=== PATIENT | female | born 1980 | race Hispanic/Latino ===

== ENCOUNTER 2016-11-11 06:48 | Inpatient (IN) | payer MEDICAID ==
[~2016-11-11] VITALS: Ht 144.8 cm; Wt 87.1 kg
[~2016-11-11 06:48] MED LIST: ASCO500T8 PO; Benzocaine TP; Docusate Sodium PO; FERR-74 PO; Hydrocodone/Acetaminophen PO; Ibuprofen PO; Lanolin TP; PREN1TAB73 PO; TUCPAD TP
[2016-11-11] MEDS ORDERED: Lactated Ringer's 1,000 ML IV PRN (07:19)
[2016-11-11] MEDS ORDERED: Carboprost 250 mCg/mL Inj IM PRN ×2 (07:20→09:45)
[2016-11-11] MEDS ORDERED: Hemorrhage Kit, Post Partum XX ONE ×2 (07:20→09:45)
[2016-11-11] MEDS ORDERED: Sodium Chloride LOK Flush 10 mL Syringe IVFLUSH PRN (07:20)
[2016-11-11] MEDS ORDERED: fentaNYL-PF 50 mCg/mL 2 mL Inj IVPUSH PRN (07:20)
[2016-11-11] MEDS ORDERED: Methylergonovine 0.2 mg/mL Inj IM PRN ×2 (07:20→09:45)
[2016-11-11] MEDS ORDERED: Oxytocin 10 Unit/mL Inj IM PRN ×2 (07:20→09:45)
[2016-11-11] MEDS ORDERED: Ampicillin Inj 2,000 MG in 0.9% Sodium Chloride 100 ML IV ONE (07:20)
[2016-11-11] MEDS ORDERED: Oxytocin 30 Units/500 mL LR 30 UNITS in IV Premix 1 EACH IV PRN ×2 (07:20→09:45)
[2016-11-11] MEDS ORDERED: Ondansetron 2 mg/mL 2 mL Inj IVPUSH PRN (07:20)
[2016-11-11 08:00] LABS: Mean Corpuscular Hemoglobin 24.6 pg (27.0-35.0); Mean Corpuscular Volume 76.4 fL (81-100)
[2016-11-11] MEDS ORDERED: PREN1TAB87 PO (08:08)
--- NOTE | 2016-11-11 08:37 | PCM.HPOB ---
Subjective Date of Service: Nov 11, 2016 Referring Provider: Admitting Physician: Sommer Moreno MD Primary Care Physician: Sommer Moreno MD Attending Physician: Sommer Moreno MD Chief Complaint Active labor at term with painful contractions History of Present History of Present Illness Patient is a very pleasant 35 year old female who has had regular PN care, and woke overnight with contractions since 2 am. she came to the Center by 7 am and was 4 cm, stretchy to 6 cm , with a bulging bag of forewaters. She is GBS positive, and Ampicillin 2grams IV is already up and running. FHR baseline was a little flat initially, and RBS was 95. Mom was given IV hydration, and FHR is reactive currently, with baseline in the 130 to 140's with good BTBV and accelerations. No decels noted. She is karena every 4 to 5 minutes, and is breathing well thru these. She is wanting to go naturally, and recent u/s on Oct 29, 2016 showed growth at the 48th% ( EFW 3069 grams), SOFI 9.6 cm and normal development for gestational age. She does have diet controlled GDM, and weight gain in the has been 16lbs. BP has been normal, and Mom has been having once weekly NST for the last 5 weeks that have been reassuring. has otherwise been uncomplicated and is anticipated. OB History: (4), Para (3), (0), Living Obstetrical Complications: Gestational Diabetes Past Medical History Obstetrical History: 1. Baby #1 was born 03/31/2006 at 39 weeks, following 5 hours of labor. She had oligohydramnios at term. She went onto of a healthy baby boy, weighing 6lbs 14 ozs. His name is Teddy. 2. Baby #2 was born 01/30[birth year]2009 at 40+5 weeks, following 7 hours of labor. She had failed induction at 39 weeks, for moderate oligohydramnios. She went onto of a healthy baby boy weighing 8 lb 9 ounces. There was a moderate shoulder dystocia. Baby's name is Lucian. 3. Baby #3 was born 09/13/2014 at 38+6 weeks, with spontaneous labor of 9 hours. She had an epidural with this baby. She went onto of a healthy baby boy weighing 7 lbs 11 ozs, and his name is Julian. Fontanez. This is her current . 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 No other gyne issues of note. Medical History: She had her GB removed in 2006, and had + PPD in 2000 treated with a full 9 months of INH and follow up chest xray was normal. Surgical History: She has had cryotherapy to her cervix, and gallbladder removal. Social History: She has grade 9 education and does not smoke, drink or use illegal or controlled substances. Hx Tobacco Use: No Smoking Status: Never Smoker Past Family History Living Arrangement: with Family Genetic Screening/Counseling Genetic Screening/Counseling: Negative Baby father-had child w defect: No Review of Systems Constitutional: Y: Chills, Fever Eyes: Resports: Blurred Vision, Denies: Pain, Redness ENT: Denies: Dental Problems, Ear Discharge, Ear Pain, Nasal Congestion, Throat Pain, Ulcers/Sores in Mouth Cardiovascular: Denies: Chest Pain, Edema Respiratory: Denies: Cough Gastrointestinal: Reports: Nausea, Denies: Abdominal Pain, Constipation, Diarrhea, Heartburn, Vomiting Genitourinary: Denies: Dysuria, Hematuria Musculoskeletal: Denies: Redness, Swelling Skin/Breasts: Denies: Bruising, Discharge Skin: Denies: Jaundice Neurological: Denies: Change in Speech, Confusion, Dizziness Psychologic: Denies: Agitation, Anxious, Apprehensive, Depression Endocrine: Reports: Blood Glucose Review Hematologic: Denies: Adenopathy Allergy Coded Allergies: No Known Allergies (Verified , 03/30/06) Exam Vital Signs 123/63 , 132/65. HR 65 to 73, temp 36.0 degrees Constitutional: Well-developed, Well-nourished, Obese HEENT: PERRLA, EOMI Lungs: Clear to Auscultation, Clear to Percussion, Normal Air Movement Heart: Regular Rate/Rhythm, Normal S1, Normal S2 Abdomen: Gravid, Soft, No tenderness Lymphatic: Normal: Neck Palpation of Nodes Extremities: Pulses Palpable x4, Warm, No Edema Neurological/Psychiatric: Alert, Oriented X3, Cooperative, Mild Distress Neuro: Grossly Neurologically Intact Labs/Diagnostics Bedside Blood Glucose: 95 Labs Patient is O positive, with no abnormal antibodies. 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 She is not on acyclovir propylaxis. Maternal Blood Type: O Hx Rho(D) Immune Globulin: No Antibody Screen: negative Group B Strep Results: Positive Previous Infant with GBS: No Rubella: Immune Lab History: Positive for: Hx Herpes, Negative for: Hx Chicken Pox, Hx Gonorrhea, Hx HIV, Hx Syphilis OB Intrapartum Assessment/Plan Assessment Patient is a very pleasant 35 year old in active labor at 39+1 week with GBS +. Ampicillin has been infused, FHR is reactive with baseline 130's to 140' s. she has well controlled gestational diabetes mellitus, by diet only. is anticipated, with EFW 7 to 7 1/2 lb range. Problems: (1) with 39 completed weeks gestation Status: Acute ICD Code: Z3A.39 (2) Diet controlled gestational diabetes mellitus (GDM), antepartum Status: Acute ICD Code: O24.410 (3) Positive GBS test Status: Acute ICD Code: B95.1 Sommer Moreno MD Nov 11, 2016 08:37
[2016-11-11] MEDS ORDERED: Benzocaine (Dermoplast) 20% 60 Gm Spray TOPICAL PRN (09:45)
[2016-11-11] MEDS ORDERED: HYDROcodone-APAP 5-325 mg Tablet PO PRN (09:45)
[2016-11-11] MEDS: Lactated Ringer's 1,000 ML IV SCH ×2 (09:45→17:45)
[2016-11-11] MEDS ORDERED: LANOlin HPA 7 Gm Ointment TOPICAL PRN (09:45)
[2016-11-11] MEDS ORDERED: Witch Hazel-Glycerin Pads TOPICAL PRN (09:45)
--- NOTE | 2016-11-11 10:04 | PCM.OBVAG ---
Vaginal Delivery Date of Service Nov 11, 2016 Pre Operative Diagnosis Pre Operative Diagnosis 1. at 39+1 weeks with spontaneous labor 2. GBS positive testing 3. Diet controlled GDM 4. of LBM Post Operative Diagnosis Post Operative Diagnosis 1. at 39+1 weeks with spontaneous labor 2. GBS positive testing 3. Diet controlled GDM 4. of LBM Procedure Obstetical Procedure: Normal Spontaneous Vaginal Delivery Editorial Clerk/Ent Physician Provider and Ent Physician: Dr. Sommer Moreno Indication for Procedure Induction: Active labor, AROM, Progressed normally through labor Findings Obstetrical Findings: (Male), Cord (3 Vessel), Presentation (ADRIAN), 1 minute (9), 5 minutes (9), Placenta Analgesia/Medications Procedural Analgesia: Natural labor with no analgesia needed. Perineum was intact. Procedure Details Procedure Details Patient is a very pleasant 35 year old at 39+1 weeks , who has had regular PN care and has EDC of 11/17/2016. She woke earlier today around 02:30 hours with painful, regular contractions, and came to the Center before 07 :00 hours and was already 4 cm, with vertex presentation, and karena every 4 to 5 minutes. She was admitted, and received Ampicillin 2grams IV within the hour of her arrival, and made good progress thru active labor. FHR baseline was in the 130 to 140's with good BTBV, and good accelerations.AROM was done at 7 cm for a small amount of clear amniotic fluid, with normal bloody show. Mother made rapid progress after this, and as active labor progressed, some variable decels to 90 to 100 were noted.There was good recovery to baseline after each contraction, and Mother was feeling a strong urge to push. She was complete at 09:28 hrs, and with strong pushing over one contraction, went onto of a LBM infant. Baby was born at 09:30 hrs and was placed onto the maternal abdomen. There was a loose loop of nuchal cord that he delivered thru. Delayed cord clamping was done. Baby was crying right away, and Apgars were 9 at one minute, and 9 at 5 minutes. Placenta delivered intact with a 3 vessel cord at 09:36 hours. Mother's perineum was intact. EBL at time of delivery was < 200mls. Mom is already and routine care is anticipated for both of them. Some blood sugars will be checked on the baby because of Mom's diet controlled GDM. Her first stage of labor was about 7 hours, second stage was 2 minutes, and third stage was 6 minutes. Specimen Placenta was for routine disposal. Blood Loss & Administration Estimated Blood Loss: 200 Blood Admin during procedure: No Post Procedure Plan Post delivery Condition: Mom stable Sommer Moreno MD Nov 11, 2016 09:59
[2016-11-11] MEDS ORDERED: Ampicillin Inj 1,000 MG in 0.9% Sodium Chloride 50 ML IV SCH (12:30)
[2016-11-12 06:26] LABS: Mean Corpuscular Hemoglobin 24.6 pg (27.0-35.0); Mean Corpuscular Volume 77.6 fL (81-100)
--- NOTE | 2016-11-12 08:11 | PCM.DC.OB ---
Obstetrical Discharge Summary Date of Service Nov 12, 2016 Date of hospital admission Nov 11, 2016 at 07:16 Date of Discharge: Nov 12, 2016 Providers Admitting Physician: Agnes Moreno MD Primary Care Physician: Agnes Moreno MD Attending Physician: Agnes Moreno MD Diagnosis at Time of Discharge 1. at 39+1 week with spontaneous labor 2. Positive GBS testing with one dose of ampicillin prior to delivery 3. Diet-controlled gestational diabetes 4. Spontaneous vaginal delivery of a live born male Problems: (1) with 39 completed weeks gestation Status: Resolved ICD Code: Z3A.39 (2) Diet controlled gestational diabetes mellitus (GDM), antepartum Status: Acute ICD Code: O24.410 (3) Positive GBS test Status: Resolved ICD Code: B95.1 (4) (normal spontaneous vaginal delivery) Onset Date: 09/13/2014 Status: Acute ICD Code: O80 Brief History and Physical: Patient is a very pleasant 35 year old female who has had regular PN care, and woke overnight with contractions since 2 am. she came to the Center by 7 am and was 4 cm, stretchy to 6 cm , with a bulging bag of forewaters. She is GBS positive, and Ampicillin 2grams IV is already up and running. FHR baseline was a little flat initially, and RBS was 95. Mom was given IV hydration, and FHR is reactive currently, with baseline in the 130 to 140's with good BTBV and accelerations. No decels noted. She is karena every 4 to 5 minutes, and is breathing well thru these. She is wanting to go naturally, and recent u/s on Oct 29, 2016 showed growth at the 48th% ( EFW 3069 grams), SOFI 9.6 cm and normal development for gestational age. She does have diet controlled GDM, and weight gain in the has been 16lbs. BP has been normal, and Mom has been having once weekly NST for the last 5 weeks that have been reassuring. has otherwise been uncomplicated and is anticipated. Hospital Course: Patient is a very pleasant 35-year-old G4 now P4 who came to the center yesterday in active labor and made good progress through same. Ampicillin 2 g IV was given prior to delivery. AROM had been done fluid and normal bloody show at 7 cm. heart rate was reactive throughout labor and delivery with baseline in the 130s to 140s with good [id number] variability and good accelerations. Mother went onto spontaneous vaginal delivery of a live born male with weight 6 lbs. 13 oz., and Apgars of 9 at 1 minute and 9 at 5 minutes. Her perineum was intact and placenta delivered intact as well, with a three-vessel cord. Estimated blood loss at time of delivery was 200 mils. In the mother has been doing well and is breast-feeding with her baby. Vital signs have remained stable for both of them. She is managing her pain with just ibuprofen. She feels ready to go home later this afternoon. On examination she is a pleasant female no acute distress blood pressures. From 109/42-124/48. Heart rate 63-75, respiratory rate 16, temperature 36.6-36.8. Chest is clear throughout with normal respiratory effort ,heart sounds normal sinus rhythm with no murmurs ,breasts are soft and colostrum is easily expressible. Fundus is firm and 1 fingerbreadth below the umbilicus. Her perineum is not swollen and she has moderate rubra lochia. She has no ankle edema. ([Benzocaine]) 1 SPRAY/GM SPRAY 1 SPRAY TP PRN PRN PRN for perineal pain Prescribed by: AGNES MORENO MD ([Docusate Sodium]) 100 MG CAPSULE 100 MG PO DAILY Prescribed by: AGNES MORENO MD ([Hydrocodone/Acetaminophen]) 1 TAB TABLET 1-2 TAB PO Q4H PRN PRN For Pain Prescribed by: AGNES MORENO MD ([Ibuprofen]) 800 MG TABLET 800 MG PO Q6H PRN PRN For Pain Prescribed by: AGNES MORENO MD ([Lanolin]) 14 APPLIC/7 GM OINT 1 APPLIC TP PRN PRN PRN apply to nipples Prescribed by: AGNES MORENO MD Ascorbic Acid (Vitamin C) 500 Mg Tablet 500 MG PO BIDWM Prescribed by: AGNES MORENO MD Ferrous Sulfate (Feosol) 325 Mg Tablet 325 MG PO BIDWM Prescribed by: AGNES MORENO MD Vit W-Ca,Fe,FA(<1 mg) ( Vitamins) 1 Each Tablet 1 EACH PO DAILY (Reported) Last Taken: Unknown Dose on 11/10/16 0800 Vit/Fe Fumarate/Fa- Expunged Drug, Do (-Expunged Drug, Do Not Renew!) 1 Tab Tablet 1 TAB PO DAILY (Reported) Witch Freida/Glycerin (A.e.r Pads) 12 Towelette/Pkg Towelette 1 TOWELETTE TP PRN PRN PRN for perineal pain Prescribed by: AGNES MORENO MD Discharge Medications: 1. Ibuprofen 800 mg by mouth 3 times a day when necessary with meals 2. vitamins 1 tablet by mouth daily while breast-feeding 3. Ferrous sulfate 325 mg by mouth daily 3 months Disposition Patient will be discharged home later that today with her baby for follow-up in the office. Discharge Diet: No restrictions (it would be advisable to stick with a diabetic type of diet long-term, as gestational diabetes does predispose to type II diabetes later in life.), Diabetic Discharge Activity-General: No restrictions, Pelvic Rest for 6 weeks, Try not to overdue, Be up and about, Balance rest and activity, Activity as pain allows , Activity as energy allows Patient instructions Please breast-feed every 2-3 hours for 10-15 minutes on each side and make sure that the baby has a good latch. I would anticipate that she milk will be coming in over the next day or so and then the baby will be more satisfied. Please call the office with any questions or concerns and I would like to see the baby by Wednesday. Agnes Moreno MD Nov 12, 2016 08:11
--- NOTE | 2016-11-12 08:14 | PCM.DIOB ---
Obstetrical Disch Instruction Date of Service: Nov 12, 2016 Dates of Hospitalization Date of Hospital Admission Nov 11, 2016 at 07:16 Providers Admitting Physician: Sommer Moreno MD Primary Care Physician: Sommer Moreno MD Attending Physician: Sommer Moreno MD Discharge Diagnosis Discharge Diagnosis 1. at 39 weeks +1 day with spontaneous labor 2. GBS testing positive with one dose of ampicillin prior to delivery 3. Diet-controlled gestational diabetes 4. Spontaneous vaginal delivery of a live born male infant Post Operative diagnosis Same as the above Problems: (1) with 39 completed weeks gestation Status: Resolved ICD Code: Z3A.39 (2) Diet controlled gestational diabetes mellitus (GDM), antepartum Status: Acute ICD Code: O24.410 (3) Positive GBS test Status: Resolved ICD Code: B95.1 (4) (normal spontaneous vaginal delivery) Onset Date: 09/13/2014 Status: Acute ICD Code: O80 Diet Discharge Diet: No restrictions (it would be advisable to stick with a diabetic type of diet long-term, as gestational diabetes does predispose to type II diabetes later in life.), Diabetic Activity Discharge Activity-General: No restrictions, Pelvic Rest for 6 weeks, Try not to overdue, Be up and about, Balance rest and activity, Activity as pain allows , Activity as energy allows Dressing and Incisional Care Hygiene: May shower, Perineal care, Sitz bath, Dermoplast spray, Witch Freida pads, Ice Additional Instructions Discharge Instructions Please breast-feed every 2-3 hours for 10-15 minutes on each side and make sure that the baby has a good latch. I would anticipate that she milk will be coming in over the next day or so and then the baby will be more satisfied. Please call the office with any questions or concerns and I would like to see the baby by Wednesday. Follow Up Plan Follow-up Provider (F9): Sommer Moreno MD Follow-up appointment: Weeks (6) Call your provider for: Fever or Chills, Shortness of breath, Heavy vaginal bleeding, Epigastric pain, Excessive constipation, Vaginal discomfort, Red painful breasts Sommer Moreno MD Nov 12, 2016 08:14
[2016-11-12] MEDS ORDERED: PREN1TAB87 PO (08:15)
[2016-11-12] MEDS ORDERED: IBUP800T28 PO (08:15)
[2016-11-12] MEDS ORDERED: FERR-74 PO (08:15)
== END 2016-11-12 11:15 | disposition home or self-care (01) | DRG 775 ==
LOC: FBCO 06:48 → FBC 07:16
PROVIDERS: ADMIT Family Medicine; ATTEND Family Medicine
PROC: 10E0XZZ Delivery of Products of Conception, External Approach (ICD-10-PCS; principal; 2016-11-11)
PROC: 10907ZC Drainage of Amniotic Fluid, Therapeutic from Products of Conception, Via Natural or Artificial Opening (ICD-10-PCS; 2016-11-11)
DX: O69.81X0 Labor and delivery complicated by cord around neck, without compression, not applicable or unspecified (principal); O24.420 Gestational diabetes mellitus in childbirth, diet controlled; Z3A.39 39 weeks gestation of pregnancy; Z37.0 Single live birth